=== PATIENT | female | born 1995 | race Caucasian/White ===

== ENCOUNTER → 2021-08-31 11:22 | Outpatient (CLI) | payer MEDICAID, SELFPAY ==
[2021-08-31 15:26] LABS: ALB/GLOB Ratio 0.6 RATIO (0.9-2.4); AST(SGOT) 14 U/L (15-37); Alanine Aminotransfer ALT/SGPT 20 U/L (13-56); Albumin, Serum 2.7 g/dL (3.2-5.0); Alkaline Phosphatase 88 U/L (45-117); Anion Gap 7 (5-15); BUN 8 mg/dL (7-18); BUN/Creat Ratio 11.5 RATIO (10-20); Calcium,Total 8.9 mg/dL (8.5-10.1); Chloride 106 mmol/L (98-107); Creatinine, Serum 0.69 mg/dL (0.55-1.02); EST Glomerular Filtration Rate 110 mL/min (>60); Est Glom Filt Rate - Afr Amer 133 mL/min (>60); Globulin 4.9 g/dL (2.2-4.2); Glucose 68 mg/dL (74-106); Protein, Total 7.6 g/dL (6.4-8.2); Sodium Level 138 mmol/L (136-145)
[2021-09-05 13:08] LABS: Testosterone, Free 0.67 ng/dL (0.10-0.85); Testosterone, Total 74 ng/dL (13-71)
[2021-09-09 08:01] LABS: 17-Hydroxyprogesterone < 10 ng/dL (.)
== END ==
PROVIDERS: PCP Pediatrics; Referring Provider Internal Medicine Endocrinology, Diabetes & Metabolism; Visit Provider Internal Medicine Endocrinology, Diabetes & Metabolism
DX: E28.8 Other ovarian dysfunction (principal)
CPT/HCPCS: 36415; 80053; 83498; 84402; 84403